=== PATIENT | female | born 1980 | race Caucasian/White ===

== ENCOUNTER 2019-06-17 14:43 | Emergency (ER) | payer BC ==
[~2019-06-17] VITALS: Ht 172.7 cm; Wt 111.1 kg
[~2019-06-17 14:43] MED LIST: DIAZEPAM10 MG PO; LAMOTRIGINE100 MG PO; SERTRALINE HCL100 MG PO; TRAZODONE HCL100 MG PO
--- OUTSIDE RECORDS SUMMARY | 2019-06-17 14:46 | XMS REPORT | Continuity of Care Document ---
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 Second dose no less than 2 hours after first if needed Subcutaneous Active 4 MG/0.5ML Subcutaneous twice a day (bid) as needed (prn) Linsey 06/10/2019 David Trona Seroquel 1 tablet at bedtime Orally Active 25 MG Orally Once a day Linsey David Trona BusPIRone HCl 1 tablet Orally Active 15 MG Orally Twice a day Trona David Linsey Alprazolam 1 tablet Orally Active 1 MG Orally Twice a day Linsey David Linsey Diazepam 1 tablet as needed Orally Active 10 MG Orally Twice a day Trona David Trona Adderall 1 tablet Orally Active 20 MG Orally Twice a day Linsey David Linsey Lamotrigine 1 tablet Orally Active 200 MG Orally Once a day Trona David Linsey Prozac 1 capsule Orally Active 20 MG Orally Once a day Trona David Linsey Sertraline HCl 1 tablet Orally Active 100 MG Orally Once a day Linsey David Trona Allergies, Adverse Reactions, Alerts Substance Category Reaction Severity Reaction type Status Date Reported Comments Source N.K.D.A. Adverse Reaction Info Not Available Adverse Reaction Active 06/10/2019 David Linsey Immunizations No Data Provided for This Section Results No Data Provided for This Section Pathology Reports No Data Provided for This Section Diagnostic Reports No Data Provided for This Section Consultation Notes No Data Provided for This Section Discharge Summaries No Data Provided for This Section History and Physicals No Data Provided for This Section Vital Signs Vital Sign Value Date Comments Source Weight 215 06/10/2019 David Trona Height 68 06/10/2019 David Linsey Heart Rate 72 06/10/2019 David Linsey Diastolic (mm Hg) 54 06/10/2019 David Trona Systolic (mm Hg) 114 06/10/2019 David Trona Encounters No Data Provided for This Section Procedures No Data Provided for This Section Assessment and Plan No Data Provided for This Section Plan of Care No Data Provided for This Section Social History No Data Provided for This Section Family History No Data Provided for This Section Advance Directives No Data Provided for This Section Functional Status No Data Provided for This Section
--- OUTSIDE RECORDS SUMMARY | 2019-06-17 14:46 | XMS REPORT ---
Author Author [facility] Address Unknown Phone Unavailable Care Team Providers Care Programmer Analyst Name Role Phone Unavailable Unavailable Payers Payer Name Policy Type Policy Number Effective Date Expiration Date Problems This patient has no known problems. Allergies, Adverse Reactions, Alerts Allergy Name Allergy Type Status Severity Reaction(s) Onset Date Inactive Date Treating Clinician Comments No Known Allergies DA Active U 2012-08-15 00:00:00 Medications This patient has no known medications.
--- OUTSIDE RECORDS SUMMARY | 2019-06-17 14:46 | XMS REPORT ---
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 Medications Medication Code System Code Instructions Start Date End Date Status Dosage Medrol [facility] 98043754368 4 MG Orally Jun 16, 2019 Active as directed Lamotrigine [facility] 48155695366 200 MG Orally Once a day Active 1 tablet Adderall [facility] 57752920987 20 MG Orally Twice a day Active 1 tablet Diazepam [facility] 09890395824 10 MG Orally Twice a day Active 1 tablet as needed Alprazolam [facility] 90600370004 1 MG Orally Twice a day Active 1 tablet Prozac [facility] 12840419077 20 MG Orally Once a day Active 1 capsule Seroquel [facility] 95060227057 25 MG Orally Once a day Active 1 tablet at bedtime BusPIRone HCl [facility] 74530138072 15 MG Orally Twice a day Active 1 tablet Sertraline HCl [facility] 58215749596 100 MG Orally Once a day Active 1 tablet Sumatriptan Succinate [facility] 73342683123 4 MG/0.5ML Subcutaneous twice a day (bid) as needed (prn) June 10, 2019 Active inject using kit. Second dose no less than 2 hours after first if needed Results No Known Results Summary Purpose [employer] Submission
--- OUTSIDE RECORDS SUMMARY | 2019-06-17 14:46 | XMS REPORT ---
Author Author David Stiles Organization [employer] Address Unknown Phone Unavailable Care Team Providers Care Bank Messenger Name Role Phone David Stiles CP Unavailable Allergies, Adverse Reactions, Alerts Substance Reaction Event Type N.K.D.A. 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 80605588882 25 MG Orally Once a day Active 1 tablet at bedtime BusPIRone HCl [facility] 86359981057 15 MG Orally Twice a day Active 1 tablet Alprazolam ND 55468678242 1 MG Orally Twice a day Active 1 tablet Diazepam ND 51666424381 10 MG Orally Twice a day Active 1 tablet as needed Adderall ND 25208375951 20 MG Orally Twice a day Active 1 tablet Sumatriptan Succinate ND 55991665369 4 MG/0.5ML Subcutaneous twice a day (bid) as needed (prn) June 10, 2019 Active inject using kit. Second dose no less than 2 hours after first if needed Lamotrigine ND 78456194775 200 MG Orally Once a day Active 1 tablet Prozac ND 80559193655 20 MG Orally Once a day Active 1 capsule Sertraline HCl ND 03047144118 100 MG Orally Once a day Active 1 tablet Vital Signs Date/Time: June 10, 2019 BMI 32.69 Index Weight 215 lbs Height 68 in Cardiac Monitoring Heart Rate 72 /min Blood Pressure Diastolic 54 mm Hg Blood Pressure Systolic 114 mm Hg Results No Known Results Summary Purpose [employer] Submission
[2019-06-17] MEDS ORDERED: SODIUM CHLORIDE 0.9% 1000ML 1,000 ML IV STA (14:55)
[2019-06-17] MEDS ORDERED: KETOROLAC TROMETHAMINE 30 MG/ML VIAL IV STA (14:55)
[2019-06-17] MEDS ORDERED: DIPHENHYDRAMINE HCL INJ 50 MG/ML VIAL IV ONE (15:00)
[2019-06-17] MEDS ORDERED: METOCLOPRAMIDE HCL 10 MG/2ML VIAL IV ONE (15:00)
[2019-06-17 15:26] LABS: BILIRUBIN,URINE NEGATIVE (NEGATIVE); CLARITY,URINE SL CLOUDY (CLEAR); COLOR,URINE YELLOW (YELLOW); KETONES,URINE TRACE (NEGATIVE); LEUKOCYTE ESTERASE ,URINE NEGATIVE (NEGATIVE); NITRITE,URINE NEGATIVE (NEGATIVE); PROTEIN,URINE DIPSTICK NEGATIVE (NEGATIVE); URINE UROBILINOGEN 0.2 mg/dL (0.2 - 1)
[2019-06-17 15:29] LABS: PREGNANCY TEST, URINE NEGATIVE (NEGATIVE)
[2019-06-17 15:37] LABS: BASOPHILS % 0.1 % (0.0-1.0); EOSINOPHILS % 0.2 % (0.0-6.0); HEMATOCRIT 41.9 % (34.2-44.1); HEMOGLOBIN 14.7 g/dL (12.0-16.0); LYMPHOCYTES # (AUTO) 1.7 (1.0-3.2); LYMPHOCYTES % 11.4 % (18.0-39.1); MEAN CORPUSCULAR HEMOGLOBIN 29.5 pg (28-32); MEAN CORPUSCULAR HGB CONC 35.1 g/dL (31-35); MONOCYTES # (AUTO) 0.6 (0.2-0.8); NEUTROPHILS # (AUTO) 12.5 (2.1-6.9); NEUTROPHILS % 83.8 % (38.7-80.0); PLATELET COUNT 288 x10e3/uL (140-360); RED BLOOD COUNT 4.99 x10e6/uL (3.6-5.1); RED CELL DISTRIBUTION WIDTH 11.8 % (11.7-14.4)
[2019-06-17 15:40] LABS: AMORPHOUS SEDIMENT,URINE FEW (FEW); BACTERIA,URINE RARE /HPF; EPITHELIAL CELLS,URINE FEW /LPF; RBC,URINE 0-5 /HPF (0-5)
[2019-06-17 15:41] LABS: CALCIUM OXALATE CRYSTALS,UR RARE (FEW)
[2019-06-17 15:54] LABS: ALANINE AMINOTRANSFERASE 17 IU/L (0-55); ALBUMIN 4.2 g/dL (3.5-5.0); ALBUMIN/GLOBULIN RATIO 1.4 (0.8-2.0); ALKALINE PHOSPHATASE 65 IU/L (40-150); BLOOD UREA NITROGEN 20 mg/dL (7-26); BUN/CREATININE RATIO 20 (6-25); CALCIUM 9.7 mg/dL (8.4-10.2); CARBON DIOXIDE 21 mmol/L (22-29); CHLORIDE 103 mmol/L (98-107); CREATININE, SERUM 0.99 mg/dL (0.57-1.11); EST GLOMERULAR FILTRATION RATE > 60 ML/MIN (60-); GLUCOSE 125 mg/dL (74-118); SODIUM 135 mmol/L (136-145)
--- NOTE | 2019-06-17 15:55 | Diagnostic Imaging Report ---
Exam: Head CT without contrast History: Migraine, headache Comparison studies: None Technique: Axial images were obtained from the skull base to the vertex. Coronal and sagittal images reconstructed from the axial data. Dose modulation, iterative reconstruction, and/or weight based adjustment of the mA/kV was utilized to reduce the radiation dose to as low as reasonably achievable. Radiation dose: Total DLP: 921 mGy*cm. Estimated effective dose: DLP x 0.015 Intravenous contrast: None Findings: Scalp: No abnormalities. Bones: No fractures, blastic or lytic lesions. Brain sulci: Appropriate for age. Ventricles: Normal in size and configuration. No hydrocephalus. Extra-axial spaces: No masses, no fluid collection. Parenchyma: No abnormal densities. No masses, hemorrhage, acute or chronic vascular insults. Sellar/suprasellar region: No abnormalities. Craniocervical junction: Patent foramen magnum. No Chiari one malformation. Incidental findings: None. IMPRESSION: No abnormalities Signed by: Dr. Cornel Montalvo M.D. on 06/17/2019 3:51 PM
[2019-06-17 17:06] VITALS: BP 107/65
== END 2019-06-17 17:24 | disposition home or self-care (01) ==
LOC: ER 14:43
DX: G43.909 Migraine, unspecified, not intractable, without status migrainosus (principal); F17.210 Nicotine dependence, cigarettes, uncomplicated
CPT/HCPCS: 36415; 70450; 80053; 81001; 81025; 85025; 87086; 99284; J1200; J1885; J2765; J7030

== ENCOUNTER → 2019-06-22 | Outpatient (CLI) | payer BC ==
--- NOTE | 2019-06-22 09:30 | Diagnostic Imaging Report ---
EXAMINATION: MRI of the cervical spine without contrast HISTORY: Head and neck pain, left greater than right upper and lower extremity numbness and weakness, evaluate for Chiari malformation, brachial neuritis. COMPARISON: None available TECHNIQUE: Sagittal T1, T2, STIR; axial T2, gradient echo. FINDINGS: Curvature: Normal lordosis. Vertebrae: No evidence of neoplasm, infection, or fracture. Foramen magnum: No mass, Chiari malformation, or basilar invagination. Spinal Cord: Normal size and signal intensity. Soft Tissues: Unremarkable. Degenerative changes: C1-C2: Unremarkable. C2-C3: Unremarkable C3-C4: Minimal disc bulge without canal or foraminal stenoses. C4-C5: Unremarkable C5-C6: Minimal disc bulge without canal or foraminal stenoses. C6-C7: Asymmetric left disc bulge and mild uncovertebral arthrosis. Mild left foraminal narrowing without evidence of nerve root compression in the position of the examination. C7-T1: Unremarkable. IMPRESSION: 1. Normal cervical spinal cord. 2. No Chiari malformation. 3. No significant degenerative changes, spinal canal or foraminal stenoses. Signed by: Dr. Nita Lara M.D. on 06/22/2019 9:27 AM
--- NOTE | 2019-06-22 09:33 | Diagnostic Imaging Report ---
EXAMINATION: MRI of the brain without contrast. HISTORY: Migraine headaches, upper and lower extremity weakness and numbness, evaluate for Chiari malformation COMPARISON: Head CT 06/17/2019 TECHNIQUE: Sagittal T2; axial DWI, T2, FLAIR, T1-IR, T2 gradient echo; coronal FLAIR. IMAGE QUALITY: Adequate. FINDINGS: Parenchyma: 1. No abnormal signal intensity 2. No mass, hemorrhage, acute or chronic infarcts. Skull: Unremarkable. Vessels: Expected flow voids present in the major arteries and dural sinuses. Extra-axial spaces: No abnormal signal intensity or mass effect. Brain volume: Within normal limits for age. Ventricles: No hydrocephalus or displacement. Foramen magnum: Unremarkable. Sella: Unremarkable. Paranasal / mastoid sinuses: No significant inflammatory disease. IMPRESSION: Normal brain MRI, particularly no Chiari malformation. Signed by: Dr. Nita Lara M.D. on 06/22/2019 9:30 AM
== END ==
LOC: MRI 07:47
PROVIDERS: ATTEND Radiology Neuroradiology
DX: G93.5 Compression of brain (principal); M54.12 Radiculopathy, cervical region
CPT/HCPCS: 70551; 72141